=== PATIENT | female | born 1960 | race American Indian/Alaskan Native ===

== ENCOUNTER 2018-04-29 18:00 | Emergency (ER) | payer MEDICARE, MEDICAID ==
[2018-04-29 18:00] VITALS: BMI 25.4
--- NOTE | 2018-04-29 19:13 | C.PDOC ---
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
--- NOTE | 2018-04-29 19:14 | C.PDOC ---
History Of Present Illness Patient presenting to ED c/o dizziness and weakness. Patient notes she is an insulin dependent diabetic, she checked her sugar at home and saw it was at 50. Patient states she probably did not eat enough, she tried drinking some orange juice, but her sugar was still low. Denies fever, chills, nausea, or vomiting. Time Seen by Provider: 04/29/18 19:13 Chief Complaint (Nursing): Weakness/Neurological Deficit History Per: Patient History/Exam Limitations: no limitations Onset/Duration Of Symptoms: Hrs Current Symptoms Are (Timing): Still Present Severity: Moderate Pain Scale Rating Of: 4 Recent travel outside of the [place]: No Past Medical History Reviewed: Historical Data, Nursing Documentation, Vital Signs Vital Signs: Last Vital Signs Temp 98.1 F 04/29/18 18:27 Pulse 75 04/29/18 20:21 Resp 15 04/29/18 20:21 BP 161/74 H 04/29/18 20:21 Pulse Ox 99 04/29/18 20:21 - Medical History PMH: Anxiety, Diabetes, Graves' Disease, HTN, Hypercholesterolemia, Hyperthyroidism, Hypothyroidism, Osteoporosis, 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 Negative for: Fever, Chills Cardiovascular: Negative for: Chest Pain Respiratory: Negative for: Shortness of Breath, Wheezing Gastrointestinal: Negative for: Nausea, Vomiting Neurological: Positive for: Dizziness. Negative for: Weakness, Numbness Physical Exam - Physical Exam Appears: Non-toxic Skin: Warm, Dry Head: Normacephalic Eye(s): bilateral: Normal Inspection Oral Mucosa: Moist Neck: Trachea Midline, Supple Chest: Symmetrical Cardiovascular: Rhythm Regular Respiratory: No Rales, No Rhonchi, No Wheezing Gastrointestinal/Abdominal: Soft, No Tenderness, No Distention Neurological/Psych: Oriented x3 Gait: Steady ED Course And Treatment - Laboratory Results Result Diagrams: 04/29/18 19:37 04/29/18 19:37 O2 Sat by Pulse Oximetry: 98 (RA) Pulse Ox Interpretation: Normal Progress Note: Blood work and urinalysis ordered. Reevaluation Time: 20:31 Reassessment Condition: Improved Medical Decision Making Medical Decision Making: Upon provider reevaluation patient is feeling better, is medically stable, and requires no further treatment in the ED at this time. Patient will be discharged home . Counseling was provided and all questions were answered regarding diagnosis and need for follow up with dr raymond. There is agreement to discharge plan. Return if symptoms persist or worsen. Disposition Counseled Patient/Family Regarding: Studies Performed, Diagnosis, Need For Followup - Disposition Referrals: Rita Raymond MD [Staff Provider] - Disposition: HOME/ ROUTINE Disposition Time: 19:14 Condition: FAIR Additional Instructions: Please check your sugars at least 4 times a day, and eat after taking your insulin Instructions: Low Blood Sugar, Adult (DC) Forms: [facility] ([place]) - Clinical Impression Clinical Impression: Hypoglycemia - Scribe Statement The provider has reviewed the documentation as recorded by the Jeane Matamorosed Provider Attestation: All medical record entries made by the Jeane were at my direction and personally dictated by me. I have reviewed the chart and agree that the record accurately reflects my personal performance of the history, physical exam, medical decision making, and the department course for this patient. I have also personally directed, reviewed, and agree with the discharge instructions and disposition.
[2018-04-29 19:41] LABS: BASO # 0.1 K/uL (0.0-0.2); BASO % 0.9 % (0.0-2.0); EOS # 0.4 K/uL (0.0-0.7); EOS % 3.7 % (0.0-4.0); HEMOGLOBIN 10.2 g/dL (11.0-16.0); LYMPH # 2.8 K/uL (1.0-4.3); MEAN CELL VOLUME 83.2 fL (81.0-99.0); MEAN CORPUSCULAR HEMOGLOBIN 26.9 pg (27.0-31.0); MEAN CORPUSCULAR HGB CONC 32.3 g/dL (33.0-37.0); MEAN PLATELET VOLUME 7.9 fL (7.2-11.7); MONO # 0.8 K/uL (0.0-0.8); MONO % 7.8 % (0.0-10.0); NEUT # 5.9 K/uL (1.8-7.0); NEUT % 59.6 % (50.0-75.0); RBC 3.78 Mil/uL (3.80-5.20); RED CELL DISTRIBUTION WIDTH 14.5 % (11.5-14.5)
[2018-04-29 19:48] LABS: VENOUS BLOOD GAS BASE EXCESS 0.3 mmol/L (0.0-2.0); VENOUS BLOOD GAS PCO2 45 mmHg (40-60); VENOUS BLOOD GAS PO2 24 mm/Hg (30-55); VENOUS BLOOD PH 7.37 (7.32-7.43)
[2018-04-29 19:54] LABS: ALB/GLOB RATIO 1.2 (1.0-2.1); ALBUMIN 3.8 g/dL (3.5-5.0); CALCIUM 9.5 mg/dl (8.6-10.4)
[2018-04-29 20:22] VITALS: BP 161/74; PULSE 75; RESP 15
[2018-04-29 20:33] LABS: SQUAMOUS EPITHIAL 9 /hpf (0-5); URINE BILIRUBIN NEGATIVE (NEGATIVE); URINE BLOOD NEGATIVE (NEGATIVE); URINE CLARITY Hazy (Clear); URINE COLOR Amber (YELLOW); URINE GLUCOSE (UA) NORMAL (Normal); URINE HYALINE CAST 0-2 /lpf (0-2); URINE LEUKOCYTE ESTERASE 2+ Leu/uL (Negative); URINE PROTEIN 3+ mg/dL (NEGATIVE); URINE UROBILINOGEN NORMAL mg/dL (0.2-1.0)
[2018-04-29 20:34] VITALS: O2SAT 98
[2018-04-29 20:35] VITALS: TEMP 98.5
== END 2018-04-29 20:38 | disposition home or self-care (01) ==
LOC: C.ER 18:00
DX: E11.649 Type 2 diabetes mellitus with hypoglycemia without coma (principal); Z79.4 Long term (current) use of insulin; I10 Essential (primary) hypertension; F17.210 Nicotine dependence, cigarettes, uncomplicated